=== PATIENT | male | born 1945 | race Caucasian/White ===

== ENCOUNTER → 2017-09-27 | Outpatient (CLI) | payer OTHER, BC | LOC: BHFA 10:45 | PROVIDERS: ATTEND Internal Medicine Cardiovascular Disease | DX: I25.10 Atherosclerotic heart disease of native coronary artery without angina pectoris (principal); Z95.2 Presence of prosthetic heart valve ==

== ENCOUNTER → 2017-10-02 | Outpatient (CLI) | payer OTHER, BC | LOC: BHFA 15:30 | PROVIDERS: ATTEND Internal Medicine Cardiovascular Disease | DX: R29.898 Other symptoms and signs involving the musculoskeletal system (principal) ==

== ENCOUNTER → 2018-05-17 | Outpatient (CLI) | payer OTHER, BC | LOC: FIMAGING 10:11 | PROVIDERS: ATTEND Orthopaedic Surgery | DX: Z01.818 Encounter for other preprocedural examination (principal); M17.11 Unilateral primary osteoarthritis, right knee ==

== ENCOUNTER 2018-06-11 09:14 | Inpatient (IN) | payer OTHER, BC ==
--- NOTE | 2018-06-11 06:27 | PDHPUP ---
History & Physical Update H&P update statement: This history and physical update is based on an assessment of the patient which was completed after admission or registration (within 24 hours), but prior to the surgery/procedure. H&P update: no change in patient's condition since H&P completed
--- NOTE | 2018-06-11 06:27 | PDIAF ---
- Diagnosis Diagnosis: right knee djd Code Status: Full Code - Medication Management Discharge Medications: electronically signed and located in the Home Medication List. - Orders Services needed: Home Care, Physical Therapy Home Care Face to Face: I certify that this patient was under my care and that I had the required nfyn-lh-peoe encounter meeting the encounter requirements on the discharge day. My findings support the fact that the patient is homebound as defined in Home Care Face to Face Continued: CMS Chapter 7 Medicare Benefits Manual 30.1.1 , The condition of the patient is such that there exists a normal inability to leave home and consequently, leaving home would require a considerable and taxing effort. Diet Recommendation: no restrictions on diet Diet Texture: Regular Texture Diet Additional Instructions: TOTAL JOINT ARTHROPLASTY DISCHARGE INSTRUCTIONS 1. Your surgeon follows the [facility] protocol for reducing your risk of DVT (blood clots) following surgery. Medication will be ordered to prevent blood clots. A sudden increase in calf pain and/or swelling could indicate a blood clot in your leg. If this occurs, please call your surgeon or his/her entry level administrative assistant. An ultrasound of the leg may be necessary to diagnose a blood clot. If you have conditions that make you a higher risk for blood clots, your surgeon may use more aggressive ways to prevent them. Notify your surgeon if you think you are a high risk for blood clots. 2. Wear your white surgical stockings (AMERICA hose) for 2 weeks. This decreases your swelling and may help prevent blood clots. It is ok to remove AMERICA hose at night time to give your legs a break. 3. Swelling and bruising in the surgical leg is common. If you feel that it is excessive, please notify your surgeon. 4. Elevate your surgical leg with the ankle above the hip several times every day. Please keep the leg straight when you elevate by putting pillows under your foot. Do not put pillows under your knee. This will make being able to fully straighten more difficult. This is uncomfortable, but try to do it as much as possible. 5. For total knee replacements use compressive wrap on your knee for 3-5 days after surgery, then you can discontinue it. 6. Use a walker or crutches for 1-2 weeks. Progress your weight-bearing as tolerated. You may start to use a cane when you feel stable and safe. 7. You will receive physical therapy instructions in the hospital. Continue those exercises at home. There are additional exercises in the total joint booklet you were given before surgery. Outpatient physical therapy will begin 7- 10 days after surgery. Please schedule this in advance. 8. Use ice on your knee at least 3-5 times every day for 30 minutes. This helps reduce pain and swelling. Also use it at night before falling asleep. 9. Leave your surgical dressing in place for 2 weeks. Your dressing is water resistant, but not waterproof. Cover it with Saran Wrap or Olacj-y-Emxh before showering. You may shower as soon as you feel safe entering a shower. If you notice bleeding from your incision 2 or 3 days after surgery, please notify your surgeon. 10. Due to narcotics, decreased activity and altered diet, most patients experience constipation after surgery. Use jcnb-uok-hykjekf stool softeners while you are on narcotics. 11. You may drive a car when you are comfortable bearing weight, have good muscular control of your leg and are off narcotics. This usually occurs 2-4 weeks after surgery, depending on which leg was operated on. 12. If there are questions not addressed here, please refer the [facility] book given for more information. If you still have questions, please contact your surgeon s office. 13. If you have a life-threatening emergency, please call 911 and go to the emergency room immediately. For non-life threatening emergencies, please call your physicians office for advice before going to the emergency room. - Follow Up Care Current Providers and Referrals: Patient,NotPresent [Primary Care Provider] - Lester Khan MD [Medical Doctor] -
[~2018-06-11 09:14] MED LIST: CALCIUM CHLORIDE 1 GM/10 ML INJ ONE; THROMBIN (BOVINE) 5,000 UNIT VIAL TP ONE; ceFAZolin 1 GM/5 ML SYR ONE
[2018-06-11] MEDS ORDERED: LR 1,000 ML IV ONE (09:24)
[2018-06-11] MEDS ORDERED: ceFAZolin 2 GM/DEXTROSE 100 ML IV ONE (10:00)
[2018-06-11] MEDS ORDERED: ACETAMINOPHEN 325 MG TAB PO ONE (10:00)
[2018-06-11] MEDS ORDERED: FAMOTIDINE 20 MG TAB PO ONE (10:00)
[2018-06-11] MEDS ORDERED: TRANEXAMIC ACID 1,000 MG in NS 100 ML IV ONE (10:00)
[2018-06-11] MEDS ORDERED: ROPIVACAINE 0.2% 80 MG, EPINEPHrine 0.2 MG, KETOROLAC TROMETHAMINE 30 MG, morphINE 10 M... IU ONE (10:00)
[2018-06-11] MEDS ORDERED: MIDAZOLAM 2 MG/2 ML VIAL IVP ONE (10:40)
--- NOTE | 2018-06-11 10:41 | PDANEPAE ---
ANE Past Medical History - Cardiovascular History Hx Hypertension: Yes Hx Arrhythmias: No Hx Chest Pain: No Hx Coronary Artery / Peripheral Vascular Disease: Yes Hx CHF / Valvular Disease: Yes Hx Palpitations: No Cardiovascular History Comment: AVR and anuerysm repair - Pulmonary History Hx COPD: No Hx Asthma/Reactive Airway Disease: No Hx Recent Upper Respiratory Infection: No Hx Oxygen in Use at Home: No Hx Sleep Apnea: No Sleep Apnea Screening Result - Last Documented: Positive - Neurologic History Hx Cerebrovascular Accident: No Hx Seizures: No Hx Dementia: No - Endocrine History Hx Diabetes: No - Renal History Hx Renal Disorders: No - Liver History Hx Hepatic Disorders: No - Neurological & Psychiatric Hx Hx Neurological and Psychiatric Disorders: No - Cancer History Hx Cancer: Yes Cancer History Comment: skin CA - Congenital Disorder History Hx Congenital Disorders: No - GI History Hx Gastrointestinal Disorders: Yes Gastrointestinal History Comment: acid reflux - Other Health History Other Health History: difficulty with hearing. glaucoma. dental implant to be done after knee procedure - Chronic Pain History Chronic Pain: Yes (right ankle) - Surgical History Prior Surgeries: AVR & anuerysm repair. colonoscopy ANE Review of Systems Review of Systems: - Exercise capacity METS (RN): 5 METS ANE Patient History - Allergies Allergies/Adverse Reactions: No Known Allergies Allergy (Verified 05/09/18 11:07) - Home Medications Home Medications: Dorzolamide 2% [Trusopt 2% (*)] 1 drops EACHEYE BID 05/09/18 [Last Taken 06:00] Herbals/Supplements -Info Only 1 ea PO DAILY 05/09/18 [Last Taken 06/04/18] Metoprolol Succinate Xr [Toprol Xl 25 mg (*)] 25 mg PO DAILY 05/09/18 [Last Taken 06/11/18 06:00] Multivitamins [Multivitamin (*)] 1 each PO DAILY 05/09/18 [Last Taken 06/04/18] Naproxen Sodium [Aleve 220 MG (*)] 220 - 440 mg PO BID PRN 05/09/18 [Last Taken 06/06/18] [place]-3 Fatty Acids [Fish Oil 1000 mg (*)] 1,000 mg PO DAILY 05/09/18 [Last Taken 06/04/18] Rosuvastatin Calcium [Crestor 40mg (*)] 40 mg PO DAILY 05/09/18 [Last Taken 06:00] Timolol 0.5% [TIMOPTIC 0.5% (*)] 1 drops EACHEYE BID 05/09/18 [Last Taken 06:00] - NPO status NPO Since - Liquids (Date): 06/11/18 NPO Since - Liquids (Time): 06:00 NPO Since - Solids (Date): 06/10/18 NPO Since - Solids (Time): 17:00 - Smoking Hx Smoking Status: Never smoked - Family Anes Hx Family Hx Anesthesia Complications: none ANE Labs/Vital Signs - Vital Signs Blood Pressure: 166/84 Heart Rate: 62 Respiratory Rate: 16 O2 Sat (%): 98 Height: 170.18 cm Weight: 61.235 kg
[2018-06-11] MEDS ORDERED: PROPOFOL/EMULSION 500 MG/50 ML BOTTLE IV ONE (10:56)
[2018-06-11] MEDS ORDERED: ROPIVACAINE HCL 150 MG/30 ML INJ ONE (11:03)
[2018-06-11] MEDS ORDERED: BUPIVACAINE/DEXTROSE 7.5MG/ML 2 ML SPINAL AMP SP ONE (11:03)
[2018-06-11] MEDS ORDERED: ONDANSETRON 4 MG/2 ML VIAL IVP PRN ×2 (12:17→13:10)
[2018-06-11] MEDS ORDERED: ACETAMINOPHEN 500 MG TAB PO PRN (12:17)
[2018-06-11] MEDS ORDERED: PHENYLEPHRINE HCL 100 MCG/ML SYR IVP PRN (12:17)
[2018-06-11] MEDS ORDERED: MEPERIDINE 25 MG/0.5 ML AMP IVP PRN (12:17)
[2018-06-11] MEDS ORDERED: DEXAMETHASONE 4 MG/ML VIAL IVP PRN (12:17)
[2018-06-11] MEDS ORDERED: LR 500 ML IV PRN (12:17)
[2018-06-11] MEDS ORDERED: fentaNYL 100 MCG/2 ML INJ IVP PRN (12:17)
[2018-06-11] MEDS ORDERED: METOCLOPRAMIDE 10 MG/2 ML VIAL IVP PRN ×2 (12:17→13:10)
[2018-06-11] MEDS ORDERED: LABETALOL HCL 5 MG/ML 20 ML MDV IVP PRN (12:17)
[2018-06-11] MEDS ORDERED: HYDROmorphONE/DILAUDID 2 MG/ML INJ IVP PRN (12:17)
[2018-06-11] MEDS ORDERED: NALOXONE HCL 0.4 MG/ML INJ IVP PRN (12:17)
[2018-06-11] MEDS ORDERED: oxyCODONE IR 5 MG TAB PO PRN (12:17)
[2018-06-11] MEDS ORDERED: ALBUTEROL 3 ML DEYVIAL IH PRN (12:17)
[2018-06-11] MEDS ORDERED: PROMETHAZINE HCL 25 MG/ML INJ IVP PRN ×2 (12:17→13:10)
--- NOTE | 2018-06-11 12:17 | PDANEPAE ---
ANE History of Present Illness right knee pain ANE Past Medical History - Cardiovascular History Hx Hypertension: Yes Hx Arrhythmias: No Hx Chest Pain: No Hx Coronary Artery / Peripheral Vascular Disease: Yes Hx CHF / Valvular Disease: Yes Hx Palpitations: No Cardiovascular History Comment: AVR and anuerysm repair - Pulmonary History Hx COPD: No Hx Asthma/Reactive Airway Disease: No Hx Recent Upper Respiratory Infection: No Hx Oxygen in Use at Home: No Hx Sleep Apnea: No Sleep Apnea Screening Result - Last Documented: Positive - Neurologic History Hx Cerebrovascular Accident: No Hx Seizures: No Hx Dementia: No - Endocrine History Hx Diabetes: No Hypothyroid: No Hyperthyroid: No Obesity: no - Renal History Hx Renal Disorders: No - Liver History Hx Hepatic Disorders: No - Neurological & Psychiatric Hx Hx Neurological and Psychiatric Disorders: No - Cancer History Hx Cancer: Yes Cancer History Comment: skin CA - Congenital Disorder History Hx Congenital Disorders: No - GI History GERD: mild Hx Gastrointestinal Disorders: Yes Gastrointestinal History Comment: acid reflux - Other Health History Other Health History: difficulty with hearing. glaucoma. dental implant to be done after knee procedure - Chronic Pain History Chronic Pain: Yes (right ankle) - Surgical History Prior Surgeries: AVR & anuerysm repair. colonoscopy ANE Review of Systems Review of systems is: negative Review of Systems: - Exercise capacity Exercise capacity: >=4 METS METS (RN): 5 METS ANE Patient History - Allergies Allergies/Adverse Reactions: No Known Allergies Allergy (Verified 05/09/18 11:07) - Home Medications Home Medications: Dorzolamide 2% [Trusopt 2% (*)] 1 drops EACHEYE BID 05/09/18 [Last Taken 06:00] Herbals/Supplements -Info Only 1 ea PO DAILY 05/09/18 [Last Taken 06/04/18] Metoprolol Succinate Xr [Toprol Xl 25 mg (*)] 25 mg PO DAILY 05/09/18 [Last Taken 06/11/18 06:00] Multivitamins [Multivitamin (*)] 1 each PO DAILY 05/09/18 [Last Taken 06/04/18] Naproxen Sodium [Aleve 220 MG (*)] 220 - 440 mg PO BID PRN 05/09/18 [Last Taken 06/06/18] [place]-3 Fatty Acids [Fish Oil 1000 mg (*)] 1,000 mg PO DAILY 12/26/18 [Last Taken 06/04/18] Rosuvastatin Calcium [Crestor 40mg (*)] 40 mg PO DAILY 05/09/18 [Last Taken 06:00] Timolol 0.5% [TIMOPTIC 0.5% (*)] 1 drops EACHEYE BID 05/09/18 [Last Taken 06:00] - NPO status NPO Status: no food or drink >8 hours NPO Since - Liquids (Date): 06/11/18 NPO Since - Liquids (Time): 06:00 NPO Since - Solids (Date): 06/10/18 NPO Since - Solids (Time): 17:00 - Anes Hx Anes Hx: no prior problems - Smoking Hx Smoking Status: Never smoked - Family Anes Hx Family Hx Anesthesia Complications: none ANE Labs/Vital Signs - Vital Signs Vital Signs: reviewed preoperatively; see RN documention for details Blood Pressure: 166/84 Heart Rate: 62 Respiratory Rate: 16 O2 Sat (%): 98 Height: 170.18 cm Weight: 61.235 kg ANE Physical Exam - Airway Neck exam: FROM Mallampati Score: Class 2 Mouth exam: normal dental/mouth exam - Pulmonary Pulmonary: no respiratory distress - Cardiovascular Cardiovascular: regular rate and rhythym - ASA Status ASA Status: II ANE Anesthesia Plan Anesthesia Plan: spinal Regional Anesthesia: adductor canal FNB
[2018-06-11] MEDS ORDERED: PROPOFOL 200 MG/20 ML VIAL ONE ×2 (12:21→12:22)
[2018-06-11] MEDS ORDERED: DIPHENOXYLATE/ATROPINE LOMOTIL 1 TAB PO PRN (13:10)
[2018-06-11] MEDS ORDERED: MAGNESIUM HYDROXIDE 30 ML UDCUP PO PRN (13:10)
[2018-06-11] MEDS ORDERED: TEMAZEPAM 15 MG CAP PO PRN (13:10)
[2018-06-11] MEDS ORDERED: POLYETHYLENE GLYCOL 3350 17 GM PKT PO PRN (13:10)
[2018-06-11] MEDS ORDERED: diphenhydrAMINE 25 MG CAP PO PRN (13:10)
[2018-06-11] MEDS ORDERED: PROMETHAZINE HCL 25 MG SUPPR PR PRN (13:10)
[2018-06-11] MEDS ORDERED: BISACODYL 10 MG SUPP PR PRN (13:10)
[2018-06-11] MEDS ORDERED: LACTULOSE 20 GM/30 ML UDCUP PO PRN (13:10)
[2018-06-11] MEDS ORDERED: ONDANSETRON DISINTEGRATING 4 MG TAB PO PRN (13:10)
--- NOTE | 2018-06-11 13:10 | POSTOPPROG ---
Post Op Note Date of Operation: 06/11/18 Surgeon: Lester Khan Pipe Turner: lily Anesthesiologist: dena Anesthesia: Spinal Pre-op Diagnosis: right knee djd Post-op Diagnosis: same Indication: same Procedure: right tka Inf/Abcess present in the surg proc area at time of surgery?: No Depth: Deep Incisional (Fascial) EBL: 100-500
[2018-06-11] MEDS ORDERED: LR 1,000 ML IV SCH (13:30)
--- NOTE | 2018-06-11 15:37 | PDMN ---
Medical Necessity Medical [place] [facility] [place] [place]thro[place], Total: 72 yo s/p R TKA. IP status for advanced age and comorbidities/hx of HTN, AVR and aneurysm repair, + ALBERTO.
--- NOTE | 2018-06-11 16:44 | POSTANESTH ---
Post Anesthetic Evaluation Cardiovascular Status: Normal, Stable Respiratory Status: Normal, Stable Level of Consciousness/Mental Status: Can Participate in Eval Pain Control: Adequate, Prn Tx Ordered Nausea/Vomiting Control: Adequate, Prn Tx Ordered Complications Possibly Related to Anesthesia: None Noted
[2018-06-11] MEDS: TRANEXAMIC ACID 650 MG TAB PO SCH ×2 (16:59→23:23)
[2018-06-11] MEDS: ACETAMINOPHEN 325 MG TAB PO SCH ×2 (17:00→23:23)
[2018-06-11] MEDS: CYCLOBENZAPRINE 10 MG TAB PO PRN (17:00)
[2018-06-11] MEDS: ceFAZolin 2 GM/DEXTROSE 100 ML IV SCH (20:18)
[2018-06-11] MEDS: FAMOTIDINE 20 MG TAB PO SCH (20:25)
[2018-06-11] MEDS: SENNOSIDES/DOCUSATE SODIUM TAB PO SCH (20:25)
[2018-06-11] MEDS: DORZOLAMIDE 2% OPTH DROPS EACHEYE SCH (20:27)
[2018-06-11] MEDS: TIMOLOL 0.5% 15 ML OPHT.BTL EACHEYE SCH (20:30)
[2018-06-11] MEDS: ASPIRIN 325 MG TAB PO SCH (22:46)
[2018-06-12] MEDS: oxyCODONE IR 5 MG TAB PO PRN ×3 (02:01→11:59)
[2018-06-12] MEDS: ceFAZolin 2 GM/DEXTROSE 100 ML IV SCH (03:42)
[2018-06-12] MEDS: ACETAMINOPHEN 325 MG TAB PO SCH ×2 (05:50→12:00)
[2018-06-12] MEDS: TRANEXAMIC ACID 650 MG TAB PO SCH (05:54)
--- NOTE | 2018-06-12 07:58 | PDIAF ---
- Diagnosis Diagnosis: right knee djd Code Status: Full Code - Medication Management Discharge Medications: electronically signed and located in the Home Medication List. - Orders Services needed: Home Care, Physical Therapy Home Care Face to Face: I certify that this patient was under my care and that I had the required [id number]-nm-[id number] encounter meeting the encounter requirements on the discharge day. My findings support the fact that the patient is homebound as defined in Home Care Face to Face Continued: CMS Chapter 7 Medicare Benefits Manual 30.1.1 , The condition of the patient is such that there exists a normal inability to leave home and consequently, leaving home would require a considerable and taxing effort. Diet Recommendation: no restrictions on diet Diet Texture: Regular Texture Diet Additional Instructions: TOTAL JOINT ARTHROPLASTY DISCHARGE INSTRUCTIONS 1. Your surgeon follows the [facility] protocol for reducing your risk of DVT (blood clots) following surgery. Medication will be ordered to prevent blood clots. A sudden increase in calf pain and/or swelling could indicate a blood clot in your leg. If this occurs, please call your surgeon or his/her department assistant. An ultrasound of the leg may be necessary to diagnose a blood clot. If you have conditions that make you a higher risk for blood clots, your surgeon may use more aggressive ways to prevent them. Notify your surgeon if you think you are a high risk for blood clots. 2. Wear your white surgical stockings (AMERICA hose) for 2 weeks. This decreases your swelling and may help prevent blood clots. It is ok to remove AMERICA hose at night time to give your legs a break. 3. Swelling and bruising in the surgical leg is common. If you feel that it is excessive, please notify your surgeon. 4. Elevate your surgical leg with the ankle above the hip several times every day. Please keep the leg straight when you elevate by putting pillows under your foot. Do not put pillows under your knee. This will make being able to fully straighten more difficult. This is uncomfortable, but try to do it as much as possible. 5. For total knee replacements use compressive wrap on your knee for 3-5 days after surgery, then you can discontinue it. 6. Use a walker or crutches for 1-2 weeks. Progress your weight-bearing as tolerated. You may start to use a cane when you feel stable and safe. 7. You will receive physical therapy instructions in the hospital. Continue those exercises at home. There are additional exercises in the total joint booklet you were given before surgery. Outpatient physical therapy will begin 7- 10 days after surgery. Please schedule this in advance. 8. Use ice on your knee at least 3-5 times every day for 30 minutes. This helps reduce pain and swelling. Also use it at night before falling asleep. 9. Leave your surgical dressing in place for 2 weeks. Your dressing is water resistant, but not waterproof. Cover it with Saran Wrap or Xqzzg-p-Knah before showering. You may shower as soon as you feel safe entering a shower. If you notice bleeding from your incision 2 or 3 days after surgery, please notify your surgeon. 10. Due to narcotics, decreased activity and altered diet, most patients experience constipation after surgery. Use omxq-vfe-jpudaot stool softeners while you are on narcotics. 11. You may drive a car when you are comfortable bearing weight, have good muscular control of your leg and are off narcotics. This usually occurs 2-4 weeks after surgery, depending on which leg was operated on. 12. If there are questions not addressed here, please refer the [facility] book given for more information. If you still have questions, please contact your surgeon s office. 13. If you have a life-threatening emergency, please call 911 and go to the emergency room immediately. For non-life threatening emergencies, please call your physicians office for advice before going to the emergency room. - Follow Up Care Current Providers and Referrals: Patient,NotPresent [Unknown] - Lester Khan MD [Medical Doctor] -
--- NOTE | 2018-06-12 08:02 | SOAPPROG ---
SOAP Progress Note Assessment/Plan: Assessment: s/p tkla Plan:d/c home after pt dvt precautions reviewed f/u at two weeks seek attn for increasing pain, or other focal complaints 06/12/18 07:58 Subjective: no complaints no cp or sob Objective: Vital Signs Temp Pulse Resp BP Pulse Ox 36.9 C 65 18 118/61 94 06/12/18 07:21 06/12/18 07:21 06/12/18 07:21 06/12/18 07:21 06/12/18 07:21 Laboratory Results 06/12/18 04:40 06/11/18 06/12/18 06/13/18 05:59 05:59 05:59 Intake Total 1885 Output Total 1500 Balance 385 dressing intact no cp or sob andreea po xrays stable alignemnt no fx or lucency ICD10 Worksheet Patient Problems: Problems Problem Status Onset Arthritis of knee Acute - ICD10 Problem Qualifiers (1) Arthritis of knee
[2018-06-12] MEDS: CYCLOBENZAPRINE 10 MG TAB PO PRN (08:25)
[2018-06-12] MEDS: FAMOTIDINE 20 MG TAB PO SCH (08:26)
[2018-06-12] MEDS: SENNOSIDES/DOCUSATE SODIUM TAB PO SCH (08:26)
[2018-06-12] MEDS: DORZOLAMIDE 2% OPTH DROPS EACHEYE SCH (08:27)
[2018-06-12] MEDS: TIMOLOL 0.5% 15 ML OPHT.BTL EACHEYE SCH (08:27)
[2018-06-12] MEDS: ASPIRIN 325 MG TAB PO SCH (08:27)
[2018-06-12] MEDS ORDERED: ROSUVASTATIN CALCIUM 40 MG TAB PO SCH (09:00)
[2018-06-12] MEDS ORDERED: METOPROLOL SUCCINATE XR 25 MG TAB PO SCH (09:00)
--- NOTE | 2018-06-12 09:41 | ASMTDCNOTE ---
Case Management Discharge Discharge Order Complete? Answers: Yes Patient to Obtain Answers: Independently Medications Transportation Arranged Answers: Family/Friends Discharge Comments Notes: Patient discharged home w . No CM needs. Will make outpatient PT appt in two weeks Date Signed: 06/12/2018 09:41 AM Electronically Signed By:Martine Landin RN
--- NOTE | 2018-06-12 09:42 | ASMTLACE ---
LACE Length of stay for Answers: 1 day current admission Acuity / Level of Answers: Yes Care: Did the patient have an inpatient admission? Comorbidities - select Answers: Coronary Artery Disease all that apply Opioid dependence / Chronic pain Other Notes: HTN # of Emergency department Answers: 0 visits in the last 6 months Score: 11 Date Signed: 06/12/2018 09:41 AM Electronically Signed By:Martine Landin RN
[2018-06-12 11:17] VITALS: BP 117/58
--- NOTE | 2018-06-13 14:38 | GDS ---
[f rep st] DISCHARGE SUMMARY ADMIT DIAGNOSIS: Right knee degenerative joint disease. DISCHARGE DIAGNOSIS: Right knee degenerative joint disease. PROCEDURE: Right total knee arthroplasty. HISTORY OF PRESENT ILLNESS: The patient is a 72-year-old gentleman who presents for elective right t otal knee replacement. He understands the risks, benefits, alternatives, and wished to proceed. Francy robbins consent was signed and placed in the patient's chart. HOSPITAL COURSE: The patient was admitted overnight after uncomplicated total knee arthroplasty. He tolerated the procedure well. At the time of discharge, he was tolerating an oral diet. Pain was w ell controlled on oral medicines. He is voiding without difficulty. Dressing is clean, dry, and int act. No calf swelling or tenderness. X-rays demonstrate anatomic position. DISCHARGE ACTIVITIES: Weightbearing as tolerated. Range of motion as tolerated. Keep the dressing clean, dry, and intact. He may shower over the bandage. Seek attention for increasing redness, swel ling, drainage, discharge, or other focal complaint. DISCHARGE MEDICATIONS: Oxycodone 5 mg one to two every 6 hours p.r.n. pain, aspirin 325 mg p.o. lisa y for 6 weeks. /[id number]/MODL
--- NOTE | 2018-06-13 14:48 | GOP ---
[f rep st] OPERATIVE REPORT DATE OF OPERATION: 06/11/2018 SURGEON: Lester Khan MD RN BIRTHING: Morgan Valenzuela, assembler surgical garment, who was a medical necessity for the entirety of the case. PREOPERATIVE DIAGNOSIS: Right knee degenerative joint disease. POSTOPERATIVE DIAGNOSIS: Right knee degenerative joint disease. PROCEDURE PERFORMED: Right total knee arthroplasty. FINDINGS: SPECIMENS: To Pathology, the bony cuts. INDICATIONS: The patient is a 72-year-old gentleman with end-stage arthritis to his right knee. Cli nical and radiographic features are consistent with this. He has failed attempts at conservative man agement, therefore recommended operative intervention. I have outlined the surgical procedure, risks , benefits, and alternatives. He wished to proceed. Written consent was signed and placed in the tony anderson's chart. DESCRIPTION OF PROCEDURE: The patient was identified in the preanesthesia area. The right knee narciso rly demarcated as the operative site with indelible marker. He was given 2 g of Ancef intravenously en route to the operative suite. In the OR, general endotracheal anesthesia was administered. A spi nal anesthetic was placed. Attention was turned to the right knee, which was sterilely prepped and d raped in usual fashion. A tourniquet was applied to the upper thigh. The limb was exsanguinated wit h an Esmarch bandage and the tourniquet inflated to 275 mmHg. A standard anterior midline incision w as made and a separate percutaneous incision over the mid tibia. Thick subcutaneous flaps were eleva cali followed by medial parapatellar arthrotomy. Subperiosteal elevation was carried out to the mid c oronal plane and retractors were placed. The knee was brought to a flexed position and the knee demo nstrated tricompartmental arthritis. Decision was made to proceed with total knee replacement. Two pins were placed across the distal femur from medial to lateral. Two pins were placed in the tibia a nd the femoral and tibial reference arrays were affixed. The femoral and tibial checkpoints were aff ixed. The bony landmarks were entered into the computer and the marginal osteophytes were withdrawn. The knee was balanced through the flexion-extension arc. Using the VoltaOplasty robot, resections we re made for a size 4 femur, size 5 tibia. Trial reduction was carried out with trial implants and a 5 x 11 mm polyethylene spacer was selected. This allowed full extension without hyperextension. Fle xion to 125 degrees. No varus or valgus instability. The trial components were withdrawn. The bony surfaces cleansed and dried, and in a sequential fashion the tibial and femoral components were pres s-fit into position. The size 5 x 11 mm polyethylene spacer was placed and confirmed to be fully sea cali. Attention was then turned to the patella. This was everted and cut in a freehand cutting techn ique. Drill holes were made for a size 35 mm patella. This was then press-fit into position and the knee tracked centrally through the flexion-extension arc. The wound was copiously irrigated. The j oint cocktail injected across the capsule and posterior capsular structures of ropivacaine, Toradol a nd epinephrine. The medial parapatellar arthrotomy closed using #1 Ethibond suture. The knee instil led with platelet-rich plasma. Subcutaneous tissue closed using 2-0 Monocryl and the skin stapled. A sterile bandage and dressing was applied. The patient was awakened, extubated, and taken to the re covery room in good, stable condition. TOTAL TOURNIQUET TIME: 50 minutes. COMPLICATIONS: None. IMPLANTS: [place] Triathlon size 4 femur, size 5 tibia, 5 x 11 mm polyethylene spacer, 35 mm patella . DISPOSITION: To the recovery room, then the floor. He will follow standard total knee recovery. /[id number]/MODL
== END 2018-06-12 14:53 | disposition home or self-care (01) | DRG 470 ==
LOC: F3N 09:14
PROVIDERS: ADMIT Orthopaedic Surgery; ATTEND Orthopaedic Surgery
DX: M17.11 Unilateral primary osteoarthritis, right knee (principal); I10 Essential (primary) hypertension; G47.33 Obstructive sleep apnea (adult) (pediatric); K21.9 Gastro-esophageal reflux disease without esophagitis; H40.9 Unspecified glaucoma; I25.10 Atherosclerotic heart disease of native coronary artery without angina pectoris; E78.5 Hyperlipidemia, unspecified; I73.9 Peripheral vascular disease, unspecified; Z95.2 Presence of prosthetic heart valve; Z85.820 Personal history of malignant melanoma of skin
CPT/HCPCS: 97116-GP; 97161-GP; 97166-GO; 97530-GP; 97535-GO; J0171; J0690; J1885; J2250; J2270; J2704; J2795

== ENCOUNTER → 2018-08-30 | Outpatient (CLI) | payer OTHER, BC ==
[~2018-08-30] MED LIST changes: -CALCIUM CHLORIDE 1 GM/10 ML INJ ONE; +GADOBUTROL 10 ML VIAL IVP ONE; -THROMBIN (BOVINE) 5,000 UNIT VIAL TP ONE; -ceFAZolin 1 GM/5 ML SYR ONE
== END ==
LOC: FIMAGING 07:41
PROVIDERS: ATTEND Otolaryngology
DX: H90.A31 Mixed conductive and sensorineural hearing loss, unilateral, right ear with restricted hearing on the contralateral side (principal)
CPT/HCPCS: 70553; A9585; 82565-PO